=== PATIENT | male | born 1990 | race Caucasian/White ===

== ENCOUNTER 2018-09-03 15:17 | Emergency (ER) | payer BC, SELFPAY ==
[2018-09-03 15:18] VITALS: BP 159/89; PULSE 86; RESP 16; TEMP 36.6; O2SAT 99; BMI 29.1
--- NOTE | 2018-09-03 15:45 | ED.VIS.GEN ---
History of Present Illness Chief Complaint: Complaint Informant: Patient Onset: Today Context: Sudden Onset Timing: Intermittent - Blood in commode Quality: Bright red blood noted in commode Location: versus GI Current Severity: Moderate Maximum Severity: Moderate Worsened by: Nothing Relieved by: Nothing Associated Symptoms: None Narrative: Patient is a 28-year-old male with history of IBS. He presents with blood in the commode. Is uncertain whether this is from his bladder or rectum. He denies history of hemorrhoids. He denies rectal pain. He denies dysuria, frequency or urgency. He denies testicular pain. He denies history of renal ureterolithiasis. There is no history of inflammatory bowel disorder. He states he had a colonoscopy 1 year ago. Colonoscopy was normal. He denies bruising easily. He denies rash. He is on no medication. Prior similar symptoms: No Recent Illness/Hospitalization: No - Past Medical History (1) History of IBS Status: Acute Past Medical History - Allergies and Home Meds Allergies/Adverse Reactions: Allergies No Known Allergies Allergy (Verified 09/03/18 15:19) Primary Care Physician: Van Turner MD [Primary Care Provider] - Prior records reviewed: No Past Medical History: - - IBS Surgical History: - - Colonoscopy 1 year ago Lives: Spouse/ Significant Other Smoking Status: Former smoker Alcohol: None, Rare Drugs: None Review of Systems General: Denies: Chills, Fever, Malaise, Sweats, Weight loss Gastrointestinal: Reports: Hematochezia - Uncertain. Denies: Abdominal pain, Nausea, Vomiting, Diarrhea, Melena Genitourinary: Denies: Dysuria, Frequency Musculoskeletal: Denies: Back pain, Extremity Pain Skin: Denies: Rash, Wounds Hematologic: Denies: Easy bruising, Easy bleeding, Lymphadenopathy Allergy: Denies: Uticaria, Swelling of the mouth Physical Exam Vital Signs/Narrative: Vital Signs Temp Pulse Resp BP Pulse Ox 09/03/18 15:18 97.9 F 86 16 159/89 H 99 Inital Vital Signs reviewed: Yes General: Well nourished, Well developed, No Acute Distress Head: Normocephalic, Atraumatic Eyes: Perrl, EOMI. Negative for: Pale conjunctiva, Scleral icterus, - ENT: Moist mucous membranes, No rhinorrhea Neck: Supple, Nontender Cardiovascular: Regular rate, Regular rhythm Respiratory: No distress, CTA bilaterally Abdomen: Soft, Nontender, Nondistended, Normal bowel sounds Rectal: - - No visible fissures, fistulas or hemorrhoids. Prostate normal size and nontender. Stool has a reddish tinge. : - - Unremarkable Back: Nontender, Normal Inspection Skin: Normal color, No rash, No Trauma. Negative for: Cyanosis, Jaundice Neurological: Alert, Oriented x3, Cranial nerves II-XII grossly intact, Normal Strength, Normal Sensation Psychological: Normal affect, Normal Mood Diagnostic/Tx/Re-eval - Medical Decision Making Need to determine if patient has hematochezia versus hematuria. Rectal exam was performed. Concern for hematochezia. Anoscopy was performed. Rectal mucosa appears normal. There is an external hemorrhoid noted at 7:00 lithotomy position. There is no active bleeding at the present time. There was stool noted at 6 cm. There also was blood noted. Stool was brown in color. Procedures Procedure(s): Anoscopy performed. There is evidence of hemorrhoid at 7:00 lithotomy position. Rectal mucosa appears normal. Stool appeared normal in color i.e. brown. There was blood noted at 6 cm. ED Disposition - Plan for ED Patient: Disposition: Home or Assisted Living Diagnosis: Bleeding hemorrhoid Instructions: ED Hemorrhoids Referrals: Van Turner MD [Primary Care Provider] - 1 Week if not improving
== END 2018-09-03 16:06 | disposition home or self-care (01) ==
PROVIDERS: Emergency Provider Emergency Medicine; Family Provider Family Medicine; PCP Family Medicine
DX: K64.4 Residual hemorrhoidal skin tags (principal); Z87.891 Personal history of nicotine dependence
CPT/HCPCS: 46600; 99282

== ENCOUNTER 2020-09-04 17:30 | Emergency (ER) | payer MEDICAID, SELFPAY ==
[2020-09-04 17:31] VITALS: BP 133/100; PULSE 85; RESP 18; TEMP 37; O2SAT 100; BMI 28.6
[2020-09-04 17:38] VITALS: BP 128/79
[2020-09-04] MEDS: Ondansetron 4 MG/2 ML Vial IV (17:54)
--- NOTE | 2020-09-18 22:41 | EX.ED.DYSGE1 ---
HPI History of Present Illness Chief Complaint: Ear Problem Narrative Narrative: 30-year-old male presenting with dizziness and bilateral ear pain. He states he has been currently treated for otitis media. He denies any fever or chills. He denies nausea or vomiting. He states he has not noted any drainage from his ears. He states that his ears hurt much worse than they did and now he has vertiginous type dizziness sometimes. PFSH PFSH no medical history Home Medications sertraline 50 mg PO DAILY 08/31/16 [History Last Taken Unknown] ondansetron 4 mg PO Q8H PRN PRN #10 tab 09/02/16 [Rx Last Taken Unknown] polyethylene glycol 3350 [Miralax] 17 g PO DAILY PRN #119 g 09/02/16 [Rx Last Taken Unknown] cefuroxime axetil 500 mg PO BID #20 tab 09/04/20 [Rx Last Taken Unknown] ondansetron HCl [Zofran] 4 mg PO Q8H PRN #20 tab 09/04/20 [Rx Last Taken Unknown] Allergy/AdvReac Type Severity Reaction Status Date / Time No Known Allergies Allergy Verified 09/04/20 17:33 Social History Smoking Status: Former smoker ROS ROS ED Constitutional Constitutional ED: Denies chills, fever(s) or sweats Eyes Eyes: Denies blurry vision or change in vision ENT ENT ED: Reports ear pain; Denies rhinorrhea or sore throat Cardiovascular Cardiovascular: Denies chest pain, palpitations or racing heartbeat Respiratory/Chest Respiratory/Chest: Denies cough, dyspnea or sputum Gastrointestinal Gastrointestinal: Denies abdominal pain, constipation, diarrhea or vomiting Genitourinary Genitourinary ED: Denies dysuria, hematuria or urinary frequency Musculoskeletal Musculoskeletal: Denies arthralgias, myalgias or neck pain Integumentary Denies abscess, Abrasions or rash Neurologic Neurologic: Reports other Details: Dizziness ; Denies headache(s), paresthesias or weakness Psychiatric Psychiatric: Denies anxiety, depression, suicidal ideation or suicidal thoughts Endocrine Endocrinology: Denies polydipsia or polyuria EXAM Physical Exam Const General Appearance ED: Negative for pallor HEENT Reports normocephalic, head/scalp atraumatic and moist mucous membranes HEENT Narrative: Right TM has anterior perforation without drainage. External auditory canal is normal. Left TM has some mild erythema anteriorly but does not appear to have rupture. Eyes PERRL and EOMs intact bilaterally Neck no lymphadenopathy and supple Resp normal respiratory effort and clear to auscultation bilaterally Auscultation: Negative for rales, rhonchi or wheezes Cardio regular rate and regular rhythm Narrative: Deferred Neuro oriented x3 and CN's II-XII intact bilaterally Sensorium / Orientation: alert Motor Exam: strength 5/5 throughout Psych mental status grossly normal Attitude: No agitated Skin no rashes or lesions noted and no wounds General Skin Exam: Negative for jaundice or pallor MDM MDM MDM Narrative Medical decision making narrative: Patient presents with bilateral ear pain and dizziness. It does appear that he has a ruptured TM on the right with some erythema on the left. Patient will again be started on antibiotics and be given follow-up with ENT. Patient stable at discharge. Impression: 1. Otitis media 2. Right perforated TM Discharge Plan Triage Chief Complaint: Ear Problem ED Provider: Khoa Moya Dx/Rx/DC Orders Instructions: ED Ruptured Infected Eardrum (Adult) Prescriptions: New cefuroxime axetil 500 mg tablet 500 mg PO BID Qty: 20 RF: 0 ondansetron HCl [Zofran] 4 mg tablet 4 mg PO Q8H PRN (Reason: nausea and vomiting) Qty: 20 RF: 0 No Action sertraline 50 MG tablet 50 mg PO DAILY RF: 0 ondansetron 4 MG tablet 4 mg PO Q8H PRN PRN (Reason: Nausea) Qty: 10 RF: 0 polyethylene glycol 3350 [Miralax] 119 GM powder 17 g PO DAILY PRN (Reason: Constipation) Qty: 119 RF: 0 Primary Care Provider: Van Turner Referrals: Eugenio Marquez MD [STAFF PHYSICIAN] - Van Turner MD [Primary Care Provider] - Disposition Disposition: Home, self care Discharge Date/Time: 09/04/20 18:24
== END 2020-09-04 18:24 | disposition home or self-care (01) ==
LOC: ED 18:05
PROVIDERS: Emergency Provider Student in an Organized Health Care Education/Training Program; PCP Family Medicine
DX: H66.90 Otitis media, unspecified, unspecified ear (principal); H72.91 Unspecified perforation of tympanic membrane, right ear; Z87.891 Personal history of nicotine dependence
CPT/HCPCS: 96374; 99283; J2405

== ENCOUNTER 2021-02-20 15:15 | Outpatient (CLI) | payer MEDICAID, SELFPAY ==
[2021-02-20] MEDS: 0.9% Saline Lock 10 ML Syringe IV (15:47)
[2021-02-20 15:50] VITALS: BP 121/80; PULSE 84; RESP 16; TEMP 36.8; O2SAT 100; BMI 26.6
[2021-02-20 16:23] VITALS: BP 130/76; PULSE 84; RESP 16; TEMP 36.6; O2SAT 100
[2021-02-20 17:26] VITALS: BP 132/76; PULSE 61; RESP 16; TEMP 36.4; O2SAT 99
== END 2021-02-20 17:28 | disposition home or self-care (01) ==
LOC: MS3OUT 15:16 → MS3 15:18
PROVIDERS: PCP Family Medicine; Referring Provider Nurse Practitioner Adult Health; Visit Provider Nurse Practitioner Adult Health
DX: Z23 Encounter for immunization (principal); U07.1 COVID-19
CPT/HCPCS: J7050; M0245; Q0245; A4216

== ENCOUNTER 2021-07-01 14:44 | Emergency (ER) | payer MEDICAID, SELFPAY ==
[2021-07-01 14:44] VITALS: BP 150/100; PULSE 96; RESP 18; TEMP 35.7; O2SAT 97; BMI 30.2
--- NOTE | 2021-07-01 15:20 | EKG12_ITS ---
Test Reason : Blood Pressure : / mmHG Vent. Rate : 075 BPM Atrial Rate : 075 BPM P-R Int : 150 ms QRS Dur : 082 ms QT Int : 348 ms P-R-T Axes : 046 066 031 degrees QTc Int : 388 ms Normal sinus rhythm with sinus arrhythmia Normal ECG When compared with ECG of 16-DEC-2014 18:44, No significant change was found Confirmed by KILEY MAZARIEGOS, VIDAL ([id number]), sound editor DARYA BENAVIDES ([id number]) on 07/04/2021 1:48:14 PM Referred By: OLIVIA Confirmed By:VIDAL CAO MD
[2021-07-01] MEDS: 0.9% Normal Saline 1,000 ML 1000 ML IV (15:37)
[2021-07-01 15:43] LABS: Absolute Lymphocyte Count 2.56 X10^3/uL (0.83-4.51); Absolute Neutrophil Count 5.1 X10^3/uL (2.0-7.7); Basophil# 0.03 X10^3/uL; Basophil% 0.4 % (0-1); Hemoglobin 14.2 g/dL (13.0-16.5); Lymphocyte # 2.56 X10^3/ul (0.83-4.51); Lymphocyte % 30.2 % (19-41); Mean Corp Hgb Conc 35.5 g/dL (32-36); Mean Corpuscular Hgb 30.9 pg (27.0-32.0); Mean Platelet Vol. 9.6 fl (6.2-12.0); Monocyte# 0.75 X10^3/uL; Monocyte% 8.8 % (0-10); NRBC Flagged by Analyzer 0 % (0-5); Neutrophil # 5.11 X10^3/uL (2.7-7.7); Neutrophil % 60.1 % (47-70); Platelet Count 248 K/mm3 (150-450); RBC Distribution Width CV 11.7 % (11.6-14.6); RBC Distribution Width SD 37.2 fl (35.1-43.9); White Blood Count 8.5 K/mm3 (4.4-11.0)
[2021-07-01 16:01] LABS: Anion Gap 5 (5-15); BUN 11 mg/dL (7-18); BUN/Creat Ratio 9.7 RATIO (10-20); Calcium,Total 9.2 mg/dL (8.5-10.1); Chloride 106 mmol/L (98-107); Creatinine, Serum 1.13 mg/dL (0.70-1.30); EST Glomerular Filtration Rate 81 mL/min (>60); Est Glom Filt Rate - Afr Amer 98 mL/min (>60); Estimated Creatinine Clearance 89.37 ml/min; Glucose 105 mg/dL (74-106); Sodium Level 138 mmol/L (136-145)
--- NOTE | 2021-07-01 16:12 | EDS_ITS ---
HPI History of Present Illness Chief Complaint: General Illness Informant: patient Onset/Context/Timing Onset: Days Context: Gradual Onset Associated Symptoms Associated Symptoms: Dizziness, shocks, chills, diarrhea Narrative Narrative: Patient stopped taking his Effexor on Friday, 2 days ago. He is having the above symptoms since. He was concerned he is dehydrated. He said his doctor is aware and he is planning to try a different medication. He also takes medication for ADHD including Vyvanse, Adderall, Scopolamine. He is not suicidal or complaining of confusion. Prior similar symptoms: No Recent Illness/Hospitalization: No PFSH PFSH Home Medications ondansetron HCl [Zofran] 4 mg PO Q8H PRN #20 tab 09/04/20 [Rx Last Taken Unknown] lisdexamfetamine [Vyvanse] 20 mg PO DAILY 02/20/21 [History Last Taken Unknown] lisinopril 5 mg PO DAILY 02/20/21 [History Last Taken Unknown] venlafaxine 225 mg PO DAILY 02/20/21 [History Last Taken Unknown] Allergy/AdvReac Type Severity Reaction Status Date / Time No Known Allergies Allergy Verified 07/01/21 14:47 Social History Smoking Status: Former smoker ROS ROS ED Constitutional Constitutional ED: Reports chills; Denies fever(s) Eyes Eyes: Denies change in vision ENT ENT ED: Denies ear pain Cardiovascular Cardiovascular: Denies chest pain Respiratory/Chest Respiratory/Chest: Denies dyspnea Gastrointestinal Gastrointestinal: Reports diarrhea; Denies abdominal pain or vomiting Genitourinary Genitourinary ED: Denies dysuria Musculoskeletal Musculoskeletal: Denies myalgias Integumentary Denies rash Neurologic Neurologic: Denies headache(s) Psychiatric Psychiatric: Denies suicidal ideation or suicidal thoughts Endocrine Endocrinology: Denies polyuria Allergic/Immunologic Allergic/Immunologic ED: Denies urticaria EXAM Physical Exam Const Vital Signs: 07/01/21 14:44 Temperature 96.2 F L Temperature Source Temporal Pulse Rate 96 Respiratory Rate 18 Blood Pressure 150/100 H Blood Pressure Mean 116 Pulse Ox 97 Oxygen Delivery Method Room Air Positive well nourished and well developed General Appearance ED: well developed HEENT Negative for trauma Eyes PERRL and EOMs intact bilaterally Neck supple Resp normal respiratory effort and clear to auscultation bilaterally Cardio regular rate and regular rhythm GI normal to inspection, nondistended, normoactive bowel sounds Extremity normal to inspection General Extremety ED: Negative for tenderness Neuro oriented x3, CN's II-XII intact bilaterally and no sensory deficits noted Neuro Narrative: No clonus or rigidity Sensorium / Orientation: alert Motor Exam: strength 5/5 throughout Psych mental status grossly normal Skin no rashes or lesions noted MDM MDM MDM Narrative Medical decision making narrative: EKG was interpreted by me and showed sinus rhythm with a rate of 75. Unremarkable intervals. No sign of ischemia or infarction pattern. Basic labs were all unremarkable. He was treated with IV fluids. This does not seem consistent with serotonin syndrome or other medication reaction then. I suspect this is serotonin withdrawal. He has follow-up. He is not in distress and does not need hospitalized. Symptomatic care at home. Return for any new or worsening issues. Impression #1 serotonin withdrawal suspected Lab Data Attestation: I reviewed the patient's lab results. Labs: Laboratory Results - last 24 hr 07/01/21 07/01/21 15:15 15:15 WBC 8.5 RBC 4.60 Hgb 14.2 Hct 40.0 MCV 87.0 MCH 30.9 MCHC 35.5 RDW Std Deviation 37.2 RDW Coeff of Keiko 11.7 Plt Count 248 MPV 9.6 Immature Gran % (Auto) 0.500 Neut % (Auto) 60.1 Lymph % (Auto) 30.2 Wilcox % (Auto) 8.8 Eos % (Auto) 0.0 Baso % (Auto) 0.4 Absolute Neuts (auto) 5.1 Absolute Lymphs (auto) 2.56 Nucleated RBC % 0 Sodium 138 Potassium 4.0 Chloride 106 Carbon Dioxide 27.0 Anion Gap 5 BUN 11 Creatinine 1.13 Estim Creat Clear Calc 89.37 Est GFR (MDRD) Af Amer 98 Est GFR (MDRD) Non-Af 81 BUN/Creatinine Ratio 9.7 L Glucose 105 Calcium 9.2 Discharge Plan Triage Chief Complaint: General Illness ED Provider: Roshan Anthony Dx/Rx/DC Orders Instructions: Selective Serotonin Reuptake ... Prescriptions: No Action ondansetron HCl [Zofran] 4 mg tablet 4 mg PO Q8H PRN (Reason: nausea and vomiting) Qty: 20 RF: 0 lisinopril 5 mg tablet 5 mg PO DAILY RF: 0 venlafaxine 75 mg capsule,extended release 24hr 225 mg PO DAILY RF: 0 Vyvanse 20 mg Capsule 20 mg PO DAILY RF: 0 Primary Care Provider: Van Turner Referrals: Van Turner MD [Primary Care Provider] - Disposition Disposition: Home, Self Care
== END 2021-07-01 16:22 | disposition home or self-care (01) ==
PROVIDERS: Emergency Provider Emergency Medicine; PCP Family Medicine; Visit Provider Emergency Medicine
DX: R42 Dizziness and giddiness (principal); R19.7 Diarrhea, unspecified; R68.83 Chills (without fever); Z87.891 Personal history of nicotine dependence; Z79.899 Other long term (current) drug therapy
CPT/HCPCS: 80048; 85025; 93005; 96360; 99284; J7030; A4216

== ENCOUNTER → 2022-11-01 | Outpatient (CLI) | payer MEDICAID, SELFPAY ==
[2022-11-01 14:21] LABS: Lipase 34 U/L (13-75)
== END | disposition home or self-care (01) ==
LOC: LABSPEC 13:28
PROVIDERS: PCP Family Medicine; Referring Provider Nurse Practitioner Family; Visit Provider Nurse Practitioner Family
DX: R10.84 Generalized abdominal pain (principal); R19.7 Diarrhea, unspecified; R11.2 Nausea with vomiting, unspecified
CPT/HCPCS: 80178; 83690

== ENCOUNTER 2024-11-17 14:00 | Emergency (ER) | payer MEDICAID, SELFPAY ==
[2024-11-17 14:00] VITALS: BP 147/101; PULSE 77; RESP 16; TEMP 36.9; O2SAT 100; BMI 24.7
--- NOTE | 2024-11-17 14:47 | EX.ED.UPPERE ---
HPI History of Present Illness Chief Complaint: Upper Extremity Injury Informant: patient and spouse/S.O. Narrative Narrative: Crush injury left middle finger hour prior to arrival. [id number]. Was working on a wood beam and came down on top of his finger. No other injuries. No anticoagulants. There is mild bleeding dorsal aspect of the finger. [facility] Medical History no medical history Home Medications ?Medication ?Instructions ?Recorded ?Last Taken ?Type ondansetron HCl 4 mg tablet 4 mg PO Q8H PRN nausea and 09/04/20 Unknown Rx (Zofran) vomiting #20 tabs lisdexamfetamine 20 mg capsule 20 mg PO DAILY 02/20/21 Unknown History (Vyvanse) lisinopril 5 mg tablet 5 mg PO DAILY 02/20/21 Unknown History venlafaxine 75 mg capsule,extended 225 mg PO DAILY 02/20/21 Unknown History release 24 hr Allergy/AdvReac Type Severity Reaction Status Date / Time No Known Allergies Allergy Verified 07/01/21 14:47 Family History no significant family his Surgical History no surgical history Social History Smoking Status: Former smoker ROS ROS ED Constitutional Constitutional ED: Denies fever(s) Cardiovascular Cardiovascular: Denies chest pain Respiratory/Chest Respiratory/Chest: Denies cough Gastrointestinal Gastrointestinal: Denies diarrhea or vomiting Musculoskeletal Musculoskeletal: Reports other Details: Left middle finger injury Integumentary Denies rash or wounds Neurologic Neurologic: Denies weakness EXAM Physical Exam Const Vital Signs: 11/17/24 14:00 Temperature 98.4 F Temperature Source Temporal Pulse Rate 77 Respiratory Rate 16 Blood Pressure 147/101 H Blood Pressure Mean 116 Pulse Ox 100 Oxygen Delivery Method Room Air Positive well nourished and well developed Constitutional Narrative: GCS 15. General Appearance ED: well developed HEENT normocephalic and atraumatic Eyes General Eye ED: Yes normal appearance of both eyes Neck full ROM Resp normal respiratory effort and normal air movement Cardio regular rate and regular rhythm GI soft to palpation Extremity Extremity Narrative: Left upper extremity: No wrist or hand injury. Middle finger noted very small pinpoint bleed dorsal DIP joint. There is ecchymosis to the volar aspect of the distal phalanx. No subungual hematoma. Able to flex and extend his DIP due to swelling however have decreased flexion. No tenderness to the other digits. Neuro oriented x3 Skin Skin Narrative: See above MDM MDM MDM Narrative Medical decision making narrative: Interventions / MDM: Differential diagnosis: Crush injury, finger contusion, fracture Diagnosis considered but do not suspect: No subungual hematoma. My EKG interpretation: N/A Imaging independently reviewed and interpreted by myself: Three-view left middle finger x-ray: No clear fractures on my review. External documents reviewed: N/A Test considered but not ordered:N/A ED course: Patient treated with Tylenol, x-ray of left middle finger for further evaluation. X-ray on my review negative for any acute process. He is placed in AlumaFoam splint. Discussed Tylenol or Motrin as needed. Outpatient follow-up with his doctor. 2300: Overview of x-ray read from radiology had concerns of a vertical fracture distal phalanx. He had no subungual Mona. I called discussed with the patient findings, discussed his AlumaFoam splint is the treatment and increased time for healing. He understands this. All questions were answered. Re-evaluation: stable Disposition discussed with patient/family/significant other: Patient and significant other Case discussed with consulting clinician: N/A This note was generated with [employer] dictation software. It may contain incorrect words, spelling, and punctuation that were not noted in checking the note before signing. Discharge Plan Triage Chief Complaint: Upper Extremity Injury ED Provider: Moses Meneses Dx/Rx/DC Orders Clinical Impression: Contusion of left middle finger without damage to nail, Crush injury, Fracture of distal phalanx of finger of left hand Instructions: ED Finger Contusion Prescriptions: No Action ondansetron HCl [Zofran] 4 mg tablet 4 mg PO Q8H PRN (Reason: nausea and vomiting) Qty: 20 0RF lisinopril 5 mg tablet 5 mg PO DAILY Patient Comments: TAKE 1 TABLET BY MOUTH ONCE DAILY venlafaxine 75 mg capsule,extended release 24hr 225 mg PO DAILY Patient Comments: TAKE 1 CAPSULE BY MOUTH ONCE DAILY. START AFTER TAKING 37.5 MG FOR 7 DAYS Vyvanse 20 mg Capsule 20 mg PO DAILY Primary Care Provider: Van Turner Referrals: Van Turner MD [Primary Care Provider] - 1-2 Weeks Activity Restrictions/Additional Instructions: X-ray negative. Use finger splint for comfort. Continue Tylenol as needed. Print Language: Azeri Disposition Disposition: Home, Self Care Discharge Date/Time: 11/17/24 16:17
--- NOTE | 2024-11-17 14:50 | RAD_ITS ---
PROCEDURE: LEFT FINGER(S) MIN 2 VIEWS 11/17/2024 REASON FOR EXAM: INJURY TECHNIQUE: Frontal lateral and oblique radiographs of the left 3rd digit. COMPARISON: None. FINDINGS: There appears to be a subtle acute nondisplaced fracture of the 3rd distal phalanx extending longitudinally through the distal tuft. No dislocation. Preserved joint spaces. Mild soft tissue swelling about the distal 3rd digit. No radiopaque foreign body. RAD/Finger(s) Min 2 Views IMPRESSION: Acute nondisplaced longitudinal fracture through the 3rd distal phalanx. Reading Location: [id number]
[2024-11-17 16:13] VITALS: BP 131/82; PULSE 56; RESP 15; TEMP 36.9; O2SAT 100
== END 2024-11-17 16:17 | disposition home or self-care (01) ==
PROVIDERS: Emergency Provider Emergency Medicine; PCP Family Medicine; Referring Provider Emergency Medicine; Visit Provider Emergency Medicine
DX: S62.663A Nondisplaced fracture of distal phalanx of left middle finger, initial encounter for closed fracture (principal); S60.032A Contusion of left middle finger without damage to nail, initial encounter; W23.0XXA Caught, crushed, jammed, or pinched between moving objects, initial encounter; Z87.891 Personal history of nicotine dependence
CPT/HCPCS: 73140; 99283